=== PATIENT | female | born 2000 | race Two or more races ===

== ENCOUNTER → 2025-05-21 | Outpatient (CLI) | payer MEDICAID, SELFPAY ==
--- NOTE | 2025-05-21 13:00 | XR_ITS ---
Examination: Complete OB ultrasound greater than 14 weeks Date and time of exam: May 21, 2025, 1357 hours INDICATIONS: , unknown size and dates. Findings: Viable intrauterine single fetus with single amniotic sac presentation cephalic. Cardiac motion 132 BPM. Placenta posterior maternal right grade 2. Umbilical cord insertion seen. Amniotic fluid index 14.4 cm. Mild bilateral hydronephrosis Cervix 4.1 cm Ovaries obscured by bowel gas. Composite estimated gestational age based on BPD, head circumference, abdominal circumference, femur length is 30 weeks 6 days, estimated weight 1694 g. Survey of intracranial anatomy, spinal anatomy, abdominal anatomy, four-chamber heart performed with no abnormalities identified. Impression: Viable intrauterine gestation cephalic presentation.
== END | disposition home or self-care (01) ==
LOC: CDIM 13:22
PROVIDERS: PCP Nurse Practitioner Family; Referring Provider Nurse Practitioner Family; Visit Provider Nurse Practitioner Family
DX: Z34.93 Encounter for supervision of normal pregnancy, unspecified, third trimester (principal); Z3A.30 30 weeks gestation of pregnancy
CPT/HCPCS: 76805

== ENCOUNTER 2025-06-04 13:23 | Outpatient (AMB) | payer MEDICAID, SELFPAY ==
[2025-06-04 13:43] VITALS: BP 95/62; PULSE 82; RESP 16; TEMP 36.6; O2SAT 98; BMI 40.8
--- NOTE | 2025-06-04 13:43 | OBCLNT_ITS ---
Vital Signs 06/04/25 13:43 Height 1.52 m Height Method Stated Weight 94.858 kg Weight Measurement Method Standing Scale BMI 40.8 BP 95/62 Blood Pressure Source Automatic Cuff Blood Pressure Location Left Upper Arm Position Sitting Respiration 16 Pulse 82 Pulse Source Monitor Temp 97.8 F Temp Source Oral Pulse Oximetry (%) 98 Oxygen Delivery Method Room Air Allergies/Home Meds Allergies & Medications Allergies No Known Allergies Allergy (Verified 06/04/25 13:50) Medication Reconciliation No Known Home Medications 06/04/25 [History Confirmed 06/04/25] Intake Visit Data Collection New Patient or Established: New Patient (never been to [facility]) Reason for Visit:: OBI Seen by Clinical Staff ONLY (RN/MA): No Job Molder Required: No Do You Feel Safe at Home: Yes Authorities Contacted: N/A PCP or OBGYN visit in last 3 months: Yes Hx Now: Yes Are you currently on any form of Control: No Last menstrual period: 10/19/24 Pain Present Currently: No Pain Scale Used: Valenzuela-Alvarez/Numerical Pain scale:: 0 Smoking Status Smoking Status: Never smoker Questionnaires Covid-19 Vaccine Questionnaire Has patient been vacinated for Covid-19 Have you been vacinated for Covid-19: No PHQ-9 PHQ-2 Over the last 2 weeks, how often have you been bothered by any of the following problems? 1. Little interest or pleasure in doing things: not at all 2. Feeling down, depressed, or hopeless: not at all Total score: 0 PHQ-9 3. Trouble falling or staying asleep, or sleeping too much: Not at all 4. Feeling tired or having little energy: Not at all 5. Poor appetite or overeating: Not at all 6. Feeling bad about yourself - or that you are a failure or have let yourself or your family down: Not at all 7. Trouble concentrating on things, such as reading the newspaper or watching television: Not at all 8. Moving or speaking so slowly that other people could have noticed? - Or the opposite - being so fidgety or restless that you have been moving around a lot more than usual: not at all 9. Thoughts that you would be better off or of hurting yourself in some way: Not at all Total score: 0 If you checked off any problems, how difficult have these problems made it for you to do your work, take care of things at home, or get along with other people?: not difficult at all Source: Developed by Drs. Jensen Barton, Erica Anderson, Rell Lewis and colleagues, with an educational caroline from [employer]. Depression screen completed yes Social History Living Situation History Marital Status: Lives With: Family Housing: TRAILOR HOME Housing Other:: Has a 4-year-old son. Used to work in the [employer] until 6 weeks ago Tobacco History Smoking Status: Never smoker Second Hand Smoke Exposure: No Alcohol History Alcohol Intake: Never Domestic Abuse History Do You Feel Safe at Home: Yes History of Present Illness HPI Narrative The patient is a 24-year-old -0-1-1 who presents with her and 4-year-old son as a new OB appointment to our clinic. She had care started in [place] and then came to the [facility] and had some care at [facility] I also have records from [facility] in the more EDC 07/26/2025 patient is approximately 33 weeks today. According to her notes, she had a classical section at 34 weeks. Today patient states she does not remember how many weeks she was and what the baby's weight was. She has no records. LMP 10/19/2024 of note the patient would like a . 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 Unknown scar. Other Relevant History: Denies chronic medical problems including asthma diabetes or hypertension. OB Initial Visit OB Flowsheet OB Flowsheet Initial Weight: Not Recorded Date -?-?-?-?-?--?-?-?-?-?-?-?- EGA Weight BP Alb Glu CTX Pres Fundal ht FHR Mov Dilation Station Effacement Hx Notes Visit Note 06/04/25 -?-?-?-?-?-?-?-?-?-?-?-?- 32w 6d 94.858 kg 95/62 33 145 Transfer OB. Labs reviewed. Ultrasound reviewed. Patient reports good movement no contractions loss or loss of fluids Menstrual History Menstrual reliability: definite Flow: normal Menstrual regularity: regular Monthly: Yes Age at menarche: 12 On control pills at conception: No OB History : 2 Para: 1 # of Living Children: 1 Delivery History 1st : Child's name: NOT PROVIDED date: 08/26/20 sex: male Delivery type: History of depression before or after : No Infection History & Risk Evaluation History of STDs: none HIV risk evaluation: low risk Hepatitis B risk evaluation: low risk Patient or partner has history of Genital Herpes: No Varicella/chicken pox status: immunized Genetic Screening & History Genetic Screening/Teratology Counseling - Includes patient, baby's father, or anyone in either family with: 1. Patient's age 35 years or older as of estimated date of delivery: No 2. Thalassemia (Tamazight, Mosotho, Mediterranean, or Background); MCV less th an 80: No 3. Neural Tube Defect (Meningomyelocele, Spina Bifida, or Anencephaly): No 4. Congenital Heart Defect: No 5. Down Syndrome: No 6. Salvador-Sachs (Ashkenazi Gnosticist, Cajun, Uzbek Azerbaijani): No 7. Hernandez Disease (Ashkenazi Gnosticist): No 8. Familial Dysautonomia (Ashkenazi Gnosticist): No 9. Sickle Cell Disease or Trait (): No 10. Hemophilia or other blood disorders: No 11. Muscular Dystrophy: No 12. Cystic Fibrosis: No 13. Dorothy's Chorea: No 14. Mental Retardation/Autism: No 15. Other inherited genetic or chromosomal disorder: No 16. Maternal Metabolic Disorder (EG,TYPE 1 Diabetes, PKU): No 17. Patient or baby's father had a child with defects not listed above: No 18. Recurrent loss or a stillbirth: No 19. Medications (including supplements, vitamins, herbs or otc drugs)/illicit/recreational drugs/alcohol since last menstrual period: No 20. Any other: No Infection History 1. Live with someone with TB or exposed to TB: No 2. Rash or viral illness since last menstrual period: No 3. Hepatitis B,C: No Other (see comments) Source: [employer] Exam Narrative Physical exam: Fundal height 34. heart tones noted at 142 bpm. General Limitations: no limitations General Appearance: alert, in no apparent distress, comfortable, cooperative, healthy appearing and well groomed Chest Chest inspection: Present normal inspection and symmetric chest wall rise Resp Respiratory exam: Present normal lung sounds bilaterally Card Cardiovascular exam: Present regular rate, normal rhythm and normal heart sounds Abdominal Abdominal exam: Present soft and normal bowel sounds Extremities Extremities exam: Present normal inspection and full ROM Psych Psychiatric exam: Present normal affect and normal mood Skin Skin exam: Present warm, dry, intact and normal color Office Procedures OBC Clinic LOC & Office Proc's Nursing/Assessment Patient Status: Initial/New Patient OB Clinic Nursing Assessment: Medication Reconciliation, Update PMH in EMR and Vital Signs OB Clinic Coordination of Care: Education Complex Pt/Fam, Consent,records obtained, informed consent, Lab and Imaging orders, Results/Orders obtained and Staff clarify orders Special Needs: Heart tones and Language special needs New Patient Charge New Patient Point Assignment: 1114 New Patient Point Charge: CONTROLLER COAL OR ORE Level 3 (4522-1197) Assessment & Plan Diagnosis / Problem List (1) : Status: Acute Qualifiers: Weeks of gestation: 33 weeks Qualified Code(s): Z3A.33 - 33 weeks gestation of Plan: Labs reviewed. Patient states she had a 1 hour glucose there is some thing in her notes about 93. We might have to get her official results. (2) History of delivery, currently : Status: Acute Plan: Patient was told [facility] does not offer VBACs. There is something in her notes about a possible classical . I am unsure about this as I have no op report. I told her even if she went to [facility] to more of a tertiary care center they would probably not offer a without a documented scar. She has a vertical skin incision I recommended a low-transverse section patient states that she thought this caused more pain which is why they apparently do it vertically in [place]. I told the patient to talk to her. The end of the discussion she decided that she would go ahead and get a repeat low-transverse section we will chai edule this for approximately 39 weeks she will follow-up in 2 weeks.
== END 2025-06-04 14:14 | disposition home or self-care (01) ==
LOC: HODSOBC 13:23
PROVIDERS: PCP Nurse Practitioner Family; Referring Provider Nurse Practitioner Family; Supervising Provider Obstetrics & Gynecology; Visit Provider Obstetrics & Gynecology
DX: O09.293 Supervision of pregnancy with other poor reproductive or obstetric history, third trimester (principal); O34.211 Maternal care for low transverse scar from previous cesarean delivery; Z3A.32 32 weeks gestation of pregnancy
CPT/HCPCS: 99203; G0463

== ENCOUNTER 2025-06-18 14:28 | Outpatient (AMB) | payer MEDICAID, SELFPAY ==
[2025-06-18 14:32] VITALS: BP 96/60; PULSE 70; RESP 17; TEMP 36.1; O2SAT 98; BMI 41.6
--- NOTE | 2025-06-18 14:32 | OBCLNT_ITS ---
Vital Signs 06/18/25 14:32 Height 1.52 m Height Method Stated Weight 96.162 kg Weight Measurement Method Standing Scale BMI 41.6 BP 96/60 Blood Pressure Source Automatic Cuff Blood Pressure Location Right Upper Arm Position Sitting Respiration 17 Pulse 70 Pulse Source Monitor Temp 97.0 F Temp Source Temporal Artery Scan Pulse Oximetry (%) 98 Oxygen Delivery Method Room Air Allergies/Home Meds Allergies & Medications Allergies No Known Allergies Allergy (Verified 06/18/25 14:34) Medication Reconciliation No Known Home Medications 06/04/25 [History Confirmed 06/18/25] Intake Visit Data Collection New Patient or Established: Established Patient (seen at [facility] within 3 years) Reason for Visit:: OBC Seen by Clinical Staff ONLY (RN/MA): No Senior Java Programmer Required: No Do You Feel Safe at Home: Yes Authorities Contacted: N/A PCP or OBGYN visit in last 3 months: Yes Date of Last PCP or OBGYN visit: 06/04/25 Hx Now: Yes Are you currently on any form of Control: No Pain Present Currently: No Pain Scale Used: Valenzuela-Alvarez/Numerical Pain scale:: 0 Smoking Status Smoking Status: Never smoker Questionnaires Covid-19 Vaccine Questionnaire Has patient been vacinated for Covid-19 Have you been vacinated for Covid-19: No PHQ-9 PHQ-2 Over the last 2 weeks, how often have you been bothered by any of the following problems? 1. Little interest or pleasure in doing things: not at all 2. Feeling down, depressed, or hopeless: not at all Total score: 0 PHQ-9 3. Trouble falling or staying asleep, or sleeping too much: Not at all 4. Feeling tired or having little energy: Not at all 5. Poor appetite or overeating: Not at all 6. Feeling bad about yourself - or that you are a failure or have let yourself or your family down: Not at all 7. Trouble concentrating on things, such as reading the newspaper or watching television: Not at all 8. Moving or speaking so slowly that other people could have noticed? - Or the opposite - being so fidgety or restless that you have been moving around a lot more than usual: not at all 9. Thoughts that you would be better off or of hurting yourself in some way: Not at all Total score: 0 If you checked off any problems, how difficult have these problems made it for you to do your work, take care of things at home, or get along with other people?: not difficult at all Source: Developed by Drs. Jensen Barton, Erica Anderson, Rell Lewis and colleagues, with an educational caroline from [employer]. Depression screen completed yes Social History Living Situation History Marital Status: Single Lives With: Family Housing: TRAILOR HOME Housing Other:: Has a 4-year-old son. Used to work in the [employer] until 6 weeks ago Tobacco History Smoking Status: Never smoker Second Hand Smoke Exposure: No Alcohol History Alcohol Intake: Never Domestic Abuse History Do You Feel Safe at Home: Yes Care OB Visit Log OB Flowsheet Initial Weight: Not Recorded Date -?-?-?--?-?-?-?-?-?-?-?-?- EGA Weight BP Alb Glu CTX Pres Fundal ht FHR Mov Dilation Station Effacement Hx Notes Visit Note 06/04/25 -?-?-?-?-?-?-?-?-?-?-?-?- 32w 6d 94.858 kg 95/62 33 145 Transfer OB. Labs reviewed. Ultrasound reviewed. Patient reports good movement no contractions loss or loss of fluids 06/18/25 -?-?-?-?-?-?-?-?-?-?-?-?- 34w 6d 96.162 kg 96/60 absent cephalic 34 141 active Fetus active. No OB complaints. Denies leaking, bleeding, contractions labor precautions discussed. Discussed kick count. And discussed danger signs symptoms and ER precautions. Return in a week with OB for repeat management ANALI Calculator Estimated Delivery Date Method Current WG Current Estimate 07/24/25 Ultrasound #1 34w 6d Other Estimates 07/26/25 LMP (Certain) 34w 4d Notes Visit Date: 06/18/25 Last Updated by: Maggie Merino CNM 06/18: 3 hr gtt wnl Visit Date: 06/04/25 Last Updated by: Caroline Infante (OB Clinic)MD Patient has been off work over the last month or so. She is asking for retrograde note. I told her I cannot do that but I can provide her a note from right now as she does work in the [employer]. We will take her off work on disability at this time. Patient has a prior section and will need a repeat. We will not the patient. She has an unknown scar from [place]. No actual labs are seen but the EMR EMR from a different doctor's office states the labs are as follows: O+/ antibody negative/ rubella immune/ RPR nonreactive /urine culture was negative/ hepatitis B surface antigen negative/ HIV negative/ thyroid normal She states that she had a glucose test but I do not see any results. Will call it and try to get a hold of hardcopy of her labs. She will follow-up in 2 weeks. Office Procedures OBC Clinic LOC & Office Proc's Nursing/Assessment Patient Status: Established Patient OB Clinic Nursing Assessment: Medication Reconciliation, Update PMH in EMR and Vital Signs OB Clinic Coordination of Care: Complex Care and Chronic Disease 1-5, Education Complex Pt/Fam, Consent,records obtained, informed consent and Staff clarify orders Special Needs: Heart tones Established Patient Charge Established Patient Point Assignment: 120 Established Patient Point Charge: EP Level 4 (120-155) Assessment & Plan Diagnosis / Problem List (1) Encounter for supervision of high risk in third trimester, antepartum: Status: Acute Plan Reviewed with patient to repeat . Scheduled with OB for previous C- section management. Discussed precautions. Kick count twice a day. Return in a week OB check Additional Plan Follow Up: 1 Week (obc)
== END 2025-06-18 15:30 | disposition home or self-care (01) ==
PROVIDERS: Supervising Provider Advanced Practice Midwife; Visit Provider Advanced Practice Midwife
DX: O09.293 Supervision of pregnancy with other poor reproductive or obstetric history, third trimester (principal); O34.219 Maternal care for unspecified type scar from previous cesarean delivery; Z3A.34 34 weeks gestation of pregnancy
CPT/HCPCS: 99214; G0463

== ENCOUNTER → 2025-06-26 15:33 | Outpatient (AMB) | payer MEDICAID, SELFPAY ==
[2025-06-26 15:48] VITALS: BP 101/69; PULSE 93; RESP 18; TEMP 36.2; O2SAT 98; BMI 41.8
--- NOTE | 2025-06-26 15:48 | OBCLNT_ITS ---
Vital Signs 06/26/25 15:48 Height 1.52 m Height Method Stated Weight 96.729 kg Weight Measurement Method Standing Scale BMI 41.8 BP 101/69 Blood Pressure Source Automatic Cuff Blood Pressure Location Left Upper Arm Position Sitting Respiration 18 Pulse 93 Pulse Source Monitor Temp 97.1 F Temp Source Oral Pulse Oximetry (%) 98 Oxygen Delivery Method Room Air Allergies/Home Meds Allergies & Medications Allergies No Known Allergies Allergy (Verified 06/26/25 15:50) Medication Reconciliation No Known Home Medications 06/04/25 [History Confirmed 06/26/25] Intake Visit Data Collection New Patient or Established: Established Patient (seen at [facility] within 3 years) Reason for Visit:: CARE Seen by Clinical Staff ONLY (RN/MA): No Plant Physiology Teacher Required: No Do You Feel Safe at Home: Yes Authorities Contacted: N/A PCP or OBGYN visit in last 3 months: Yes Hx Now: Yes Are you currently on any form of Control: No Pain Present Currently: No Pain Scale Used: Valenzuela-Alvarez/Numerical Pain scale:: 0 Smoking Status Smoking Status: Never smoker Questionnaires Covid-19 Vaccine Questionnaire Has patient been vacinated for Covid-19 Have you been vacinated for Covid-19: Yes PHQ-9 PHQ-2 Over the last 2 weeks, how often have you been bothered by any of the following problems? 1. Little interest or pleasure in doing things: not at all 2. Feeling down, depressed, or hopeless: not at all Total score: 0 PHQ-9 3. Trouble falling or staying asleep, or sleeping too much: Not at all 4. Feeling tired or having little energy: Not at all 5. Poor appetite or overeating: Not at all 6. Feeling bad about yourself - or that you are a failure or have let yourself or your family down: Not at all 7. Trouble concentrating on things, such as reading the newspaper or watching television: Not at all 8. Moving or speaking so slowly that other people could have noticed? - Or the opposite - being so fidgety or restless that you have been moving around a lot more than usual: not at all 9. Thoughts that you would be better off or of hurting yourself in some way: Not at all Total score: 0 Source: Developed by Drs. Jensen Barton, Erica Anderson, Rell Lewis and colleagues, with an educational caroline from [employer]. Depression screen completed yes Social History Living Situation History Lives With: Family Housing: TRAILOR HOME Housing Other:: Has a 4-year-old son. Used to work in the [employer] until 6 weeks ago Tobacco History Smoking Status: Never smoker Second Hand Smoke Exposure: No Alcohol History Alcohol Intake: Never Domestic Abuse History Do You Feel Safe at Home: Yes Care OB Visit Log OB Flowsheet Initial Weight: Not Recorded Date -?-?-?-?-?-?-?-?-?-?-?-?- EGA Weight BP Alb Glu CTX Pres Fundal ht FHR Mov Dilation Station Effacement Hx Notes Visit Note 06/04/25 -?-?-?-?-?-?-?-?-?-?-?-?- 32w 6d 94.858 kg 95/62 33 145 Transfer OB. Labs reviewed. Ultrasound reviewed. Patient reports good movement no contractions loss or loss of fluids 06/18/25 -?-?-?-?-?-?-?-?-?-?-?-?- 34w 6d 96.162 kg 96/60 absent cephalic 34 141 active Fetus active. No OB complaints. Denies leaking, bleeding, contractions labor precautions discussed. Discussed kick count. And discussed danger signs symptoms and ER precautions. Return in a week with OB for repeat management 06/26/25 -?-?-?-?-?-?-?-?-?-?-?-?- 36w 0d 96.729 kg 101/69 absent cephalic 37 145 active - She has a history of classical section at 34 weeks in July 2020 in [place]. - Patient was interested in attempting a (vaginal after ) for this . - She was previously informed that the ospital does not allow procedures. - Patient expressed being upset about having to have another alexis an section. - scheduled for July 18 at 1230 hours (patient will be 39 weeks and 1 day gestation) - GBS culture obtained today, results pe nding - Referral placed due to abnormal Pap sm ear - Patient to follow up with Dr. Sepulveda (n ot Dr. Barnes) through August ANALI Calculator Estimated Delivery Date Method Current WG Current Estimate 07/24/25 Ultrasound #1 36w 2d Other Estimates 07/26/25 LMP (Certain) 36w 0d Notes Visit Date: 06/18/25 Last Updated by: Maggie Merino CNM 06/18: 3 hr gtt wnl Visit Date: 06/04/25 Last Updated by: Caroline Infante (OB Clinic)MD Patient has been off work over the last month or so. She is asking for retrograde note. I told her I cannot do that but I can provide her a note from right now as she does work in the [employer]. We will take her off work on disability at this time. Patient has a prior section and will need a repeat. We will not the patient. She has an unknown scar from [place]. No actual labs are seen but the EMR EMR from a different doctor's office states the labs are as follows: O+/ antibody negative/ rubella immune/ RPR nonreactive /urine culture was negative/ hepatitis B surface antigen negative/ HIV negative/ thyroid normal She states that she had a glucose test but I do not see any results. Will call it and try to get a hold of hardcopy of her labs. She will follow-up in 2 weeks. Office Procedures OBC Clinic LOC & Office Proc's Nursing/Assessment Patient Status: Established Patient OB Clinic Nursing Assessment: Medication Reconciliation, Update PMH in EMR and Vital Signs OB Clinic Coordination of Care: Complex Care and Chronic Disease 1-5, Consent ,records obtained, informed consent, Education Simp Pt/Fam, 1 Ins Authorization, Lab and Imaging orders, Results/Orders obtained and Staff clarify orders Special Needs: Heart tones Miscellaneous Interventions: Culture Specimen Collection Established Patient Charge Established Patient Point Assignment: 165 Established Patient Point Charge: EP Level 5 (160-above) Assessment & Plan Diagnosis / Problem List (1) Encounter for supervision of high risk in third trimester, antepartum: Status: Acute (2) History of delivery, currently : Status: Acute Plan Problem List - , 36 weeks gestation - History of classical section - Group B Streptococcus screening pending - Abnormal Pap smear Assessment 24-year-old at 36 weeks and 0 days gestation with history of classical section at 34 weeks in July 2020 in [place]. Patient had previously expressed interest in but was informed that the hospital does not allow after classical section. Patient has abnormal Pap smear requiring follow-up. GBS culture was obtained today with results pending. Repeat section has been scheduled for July 18 at 39 weeks and 1 day gestation. Plan - scheduled for July 18 at 1230 hours (patient will be 39 weeks and 1 day gestation) - GBS culture obtained today, results pending - Referral placed due to abnormal Pap smear - Patient to follow up with Dr. Sepulveda (not Dr. Barnes) through August 11. Progress Reviewed gestational age, growth, and heart rate. Planned frequent visits (every 2 weeks until 36 weeks, then weekly). 2. Instructed patient to monitor movements and report decreases immediately. 3. Testing Counseled on routine third-trimester labs per guidelines. Discussed potential need for ultrasound or monitoring based on risk factors. 4. Preeclampsia Precaution Educated on preeclampsia signs: severe headache, vision changes, right upper quadrant pain, sudden swelling. Advised urgent reporting of symptoms and discussed blood pressure monitoring if high risk. 5. Labor Precautions Reviewed labor signs: regular contractions, pelvic pressure, back pain, bleeding, or fluid leakage. Instructed to seek immediate care for these symptoms. 6. Lifestyle and Delivery Preparation Reinforced vitamins, nutrition, and safe activity. Discussed plan, pain management, and . Advised on labor preparation (e.g., hospital bag) and expectations. 7. Psychosocial Support Assessed emotional well-being and offered resources for mental health or parenting support.
== END ==
LOC: HODSOBC 15:33
PROVIDERS: Supervising Provider Obstetrics & Gynecology; Visit Provider Obstetrics & Gynecology
DX: O09.293 Supervision of pregnancy with other poor reproductive or obstetric history, third trimester (principal); O34.212 Maternal care for vertical scar from previous cesarean delivery; Z3A.36 36 weeks gestation of pregnancy; Z36.85 Encounter for antenatal screening for Streptococcus B
CPT/HCPCS: 99215; G0463

== ENCOUNTER 2025-07-15 10:01 | Outpatient (AMB) | payer MEDICAID, SELFPAY ==
[2025-07-15 10:20] VITALS: BP 106/72; PULSE 93; RESP 18; TEMP 36.4; O2SAT 97; BMI 42.6
--- NOTE | 2025-07-15 10:20 | OBCLNT_ITS ---
Vital Signs 07/15/25 10:20 Height 1.52 m Height Method Stated Weight 98.43 kg Weight Measurement Method Standing Scale BMI 42.6 BP 106/72 Blood Pressure Source Automatic Cuff Blood Pressure Location Left Upper Arm Position Sitting Respiration 18 Pulse 93 Pulse Source Monitor Temp 97.6 F Temp Source Oral Pulse Oximetry (%) 97 Oxygen Delivery Method Room Air Allergies/Home Meds Allergies & Medications Allergies No Known Allergies Allergy (Verified 07/15/25 10:24) Medication Reconciliation No Known Home Medications 06/04/25 [History Confirmed 07/15/25] Intake Visit Data Collection New Patient or Established: Established Patient (seen at [facility] within 3 years) Reason for Visit:: CARE/ GBS RESULTS Seen by Clinical Staff ONLY (RN/MA): No Electric Container Tester Required: Yes Electric Container Tester's name/title: CAROLYN CARROLL/OMI Do You Feel Safe at Home: Yes Authorities Contacted: N/A PCP or OBGYN visit in last 3 months: Yes Hx Now: Yes Are you currently on any form of Control: No Pain Present Currently: No Pain Scale Used: Valenzuela-Alvarez/Numerical Pain scale:: 0 Smoking Status Smoking Status: Never smoker Immunizations Flu Vaccine in the Last 12 Months: Yes Flu Vaccine Exclusion Criteria: Already Received Questionnaires Covid-19 Vaccine Questionnaire Has patient been vacinated for Covid-19 Have you been vacinated for Covid-19: Yes PHQ-9 PHQ-2 Over the last 2 weeks, how often have you been bothered by any of the following problems? 1. Little interest or pleasure in doing things: not at all 2. Feeling down, depressed, or hopeless: not at all Total score: 0 PHQ-9 3. Trouble falling or staying asleep, or sleeping too much: Not at all 4. Feeling tired or having little energy: Not at all 5. Poor appetite or overeating: Not at all 6. Feeling bad about yourself - or that you are a failure or have let yourself or your family down: Not at all 7. Trouble concentrating on things, such as reading the newspaper or watching television: Not at all 8. Moving or speaking so slowly that other people could have noticed? - Or the opposite - being so fidgety or restless that you have been moving around a lot more than usual: not at all 9. Thoughts that you would be better off or of hurting yourself in some way: Not at all Total score: 0 Source: Developed by Drs. Jensen Barton, Erica Anderson, Rell Lewis and colleagues, with an educational caroline from [employer]. Depression screen completed yes Social History Living Situation History Lives With: Family Housing: TRAILOR HOME Housing Other:: Has a 4-year-old son. Used to work in the [employer] until 6 weeks ago Tobacco History Smoking Status: Never smoker Second Hand Smoke Exposure: No Alcohol History Alcohol Intake: Never Domestic Abuse History Do You Feel Safe at Home: Yes Care OB Visit Log OB Flowsheet Initial Weight: Not Recorded Date -?-?-?-?-?-?-?-?-?-?-?-?- EGA Weight BP Alb Glu CTX Pres Fundal ht FHR Mov Dilation Station Effacement Hx Notes Visit Note 06/04/25 -?-?-?-?-?-?-?-?-?-?-?-?- 32w 4d 94.858 kg 95/62 33 145 Transfer OB. Labs reviewed. Ultrasound reviewed. Patient reports good movement no contractions loss or loss of fluids 06/18/25 -?-?-?-?-?-?-?-?-?-?-?-?- 34w 4d 96.162 kg 96/60 absent cephalic 34 141 active Fetus active. No OB complaints. Denies leaking, bleeding, contractions labor precautions discussed. Discussed kick count. And discussed danger signs symptoms and ER precautions. Return in a week with OB for repeat management 06/26/25 -?-?-?-?-?-?-?-?-?-?-?-?- 35w 5d 96.729 kg 101/69 absent cephalic 37 145 active - She has a history of classical section at 34 weeks in July 2020 in [place]. - Patient was interested in attempting a (vaginal after ) for this . - She was previously informed that the ospital does not allow procedures. - Patient expressed being upset about having to have another alexis an section. - scheduled for July 18 at 1230 hours (patient will be 39 weeks and 1 day gestation) - GBS culture obtained today, results pe nding - Referral placed due to abnormal Pap sm ear - Patient to follow up with Dr. Sepulveda (n ot Dr. Barnes) through 07/03/25 -?-?-?-?-?-?-?-?-?-?-?-?- 36w 5d 97.296 kg 110/73 absent cephalic 38 155 active - She reports the baby is very active with occasional mild contractions that are intermittent. - She experiences headaches and stomach aches. - Headaches occur during the day and s he has been taking Tylenol for relief. - She has a history of preeclampsia and current elevated blood pressure. - She denies regular contractions occurr ing every 5 minutes. 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 - Repeat section scheduled for July 18 at 37 weeks gestation - Pre-operative appointment to be schedu led before July 18 - Patient to register at [facility] regist ration desk at main entrance - Monitor for contractions - come to hos pital if contractions occur every 5 minutes - Take Tylenol for headaches; if headach es persist despite Tylenol, come in for laboratory work - Blood pressure monitoring and urine pr otein checks for preeclampsia history - Detailed hospital instructions to be p rovided at next visit 07/15/25 -?-?-?-?-?-?-?-?-?-?-?-?- 38w 3d 98.43 kg 106/72 absent cephalic 39 150 active - She reports the baby is active with no contractions or problems. - She denies any current concerns or com plications. - Patient has a scheduled repeat section planned for . - GBS culture performed today at 35 weeks 4 days gestation - Scheduled repeat section on N - Patient to arrive 2 hours before anna donovan section - NPO (nothing by mouth) for 8 hours kim or to section - Follow-up visits to be weekly until ce sarean section - Next appointment scheduled for one kashif lopez EDD Calculator Estimated Delivery Date Method Current WG Current Estimate 07/26/25 LMP (Certain) 38w 3d Other Estimates 07/24/25 Ultrasound #1 38w 5d Notes Visit Date: 06/18/25 Last Updated by: Maggie Merino CNM 06/18: 3 hr gtt wnl Visit Date: 06/04/25 Last Updated by: Caroline Infante (OB Clinic)MD Patient has been off work over the last month or so. She is asking for retrograde note. I told her I cannot do that but I can provide her a note from right now as she does work in the [employer]. We will take her off work on disability at this time. Patient has a prior section and will need a repeat. We will not the patient. She has an unknown scar from [place]. No actual labs are seen but the EMR EMR from a different doctor's office states the labs are as follows: O+/ antibody negative/ rubella immune/ RPR nonreactive /urine culture was negative/ hepatitis B surface antigen negative/ HIV negative/ thyroid normal She states that she had a glucose test but I do not see any results. Will call it and try to get a hold of hardcopy of her labs. She will follow-up in 2 weeks. Office Procedures OBC Clinic LOC & Office Proc's Nursing/Assessment Patient Status: Established Patient OB Clinic Nursing Assessment: Medication Reconciliation, Update PMH in EMR and Vital Signs OB Clinic Coordination of Care: Complex Care and Chronic Disease 1-5, Consent,records obtained, informed consent, Education Simp Pt/Fam, 1 Ins Authorization, Lab and Imaging orders, Results/Orders obtained and Staff clarify orders Special Needs: Heart tones Established Patient Charge Established Patient Point Assignment: 150 Established Patient Point Charge: EP Level 4 (120-155) Assessment & Plan Diagnosis / Problem List (1) Encounter for supervision of high risk in third trimester, antepartum: Status: Acute (2) History of delivery, currently : Status: Acute Plan Problem List - at 35 weeks and 4 days gestation - History of delivery - Scheduled repeat section Assessment 35-week 4-day 2 para 1 patient presenting for routine visit with scheduled repeat section. heart rate is normal at 150-151 bpm. Patient reports active movement with no contractions or other concerning symptoms. Group B Streptococcus screening was performed as indicated for gestational age. Plan - GBS culture performed today at 35 weeks 4 days gestation - Scheduled repeat section on August 08 - Patient to arrive 2 hours before section - NPO (nothing by mouth) for 8 hours prior to section - Follow-up visits to be weekly until section - Next appointment scheduled for one week 1. Progress Reviewed gestational age (35 weeks 4 days), growth, and heart rate (150-151 bpm, normal). Planned frequent visits (weekly until scheduled section on August 08). 2. Instructed patient to monitor movements and report decreases immediately. 3. Testing Counseled on routine third-trimester labs per guidelines (GBS culture performed today). Discussed potential need for ultrasound or monitoring based on risk factors. 4. Preeclampsia Precaution Educated on preeclampsia signs: severe headache, vision changes, right upper quadrant pain, sudden swelling. Advised urgent reporting of symptoms and discussed blood pressure monitoring if high risk. 5. Labor Precautions Reviewed labor signs: regular contractions, pelvic pressure, back pain, bleeding, or fluid leakage. Instructed to seek immediate care for these symptoms. 6. Lifestyle and Delivery Preparation Reinforced vitamins, nutrition, and safe activity. Discussed plan (scheduled repeat section), pain management, and . Advised on labor preparation (arrive 2 hours before surgery, NPO for 8 hours prior) and expectations. 7. Psychosocial Support Assessed emotional well-being and offered resources for mental health or parenting support.
== END 2025-07-15 10:44 | disposition home or self-care (01) ==
LOC: HODSOBC 10:01
PROVIDERS: PCP Obstetrics & Gynecology; Referring Provider Obstetrics & Gynecology; Supervising Provider Obstetrics & Gynecology; Visit Provider Obstetrics & Gynecology
DX: O09.293 Supervision of pregnancy with other poor reproductive or obstetric history, third trimester (principal); O34.212 Maternal care for vertical scar from previous cesarean delivery; Z3A.38 38 weeks gestation of pregnancy; Z36.85 Encounter for antenatal screening for Streptococcus B
CPT/HCPCS: 99214; G0463

== ENCOUNTER 2025-07-18 10:45 | Inpatient (IN) | payer MEDICAID, SELFPAY ==
[2025-07-18] VITALS (13 sets, daily range): BP systolic 65–125; BP diastolic 50–108; PULSE 72–103; RESP 16–28; TEMP 36.6–37; O2SAT 99–100; BMI 42.2
--- NOTE | 2025-07-18 11:30 | ESHP_ITS ---
Documentation for date of: 07/18/25 OB Labor/Induct. HPI History of Present Illness : 2 Living children: 1 History of sections: Yes Date of last menstrual period: 10/19/24 ANALI: 07/26/25 Gestational Age (weeks): 38 Gestational Age (days): 6 Gestational age based on last menstrual period: 38 History of present illness: Ms. Lakshmi Ricardo is a 24-year-old female at 38 weeks and 6 days gestation, admitted for scheduled repeat delivery due to a previous classical uterine incision performed at 34 weeks in July 2020 in [place]. The patient denies contractions, vaginal bleeding, or leakage of fluid. She reports normal movement though somewhat decreased due to limited intrauterine space. She describes occasional mild contractions, not regular or painful. She has experienced intermittent headaches during the day, partially relieved with Tylenol. She denies visual changes, right upper quadrant pain, or epigastric tenderness. She has a history of preeclampsia in her prior and was noted to have elevated blood pressures during recent visits. She is otherwise in good health and compliant with vitamins. blood type O positive with a negative antibody screen. She is rubella immune, hepatitis B surface antigen negative, HIV non-reactive, and RPR non-reactive. Gonorrhea and chlamydia testing were negative, and her urine culture showed no growth. A one-hour glucose tolerance test was within normal limits. Group B Streptococcus screening was negative. Labs Labs: Positive: Rubella Titre, Negative: RPR, Hepatitis B, HIV, Chlamydia and Gonorrhea and Unknown: Herpes Type 1, Herpes Type 2, Group Beta Strep and Covid-19 Past Medical History Surgical History SURGICAL: Positive Section Meds Home Medications and Allergies Allergies Allergy/AdvReac Type Severity Reaction Status Date / Time No Known Allergies Allergy Verified 07/15/25 10:24 OB Exam Physical Exam Narrative: General: Awake, alert, in no acute distress. HEENT: No edema, sclera anicteric. Cardiac: RRR, no murmurs. Lungs: Clear to auscultation, mild non-productive cough. Abdomen: Gravid, non-tender, fundal height appropriate. No contractions palpated. Extremities: Trace edema, no calf tenderness, reflexes normal. FHR: 146 bpm, reactive. OB Assessment & Plan Assessment and Plan (1) History of delivery, currently : Status: Acute Assessment and plan: Admit to Labor & Delivery for scheduled repeat section on 07/18/2025 at 12:30 PM NPO after midnight. CBC, type & screen, RPR Anesthesia and teams notified. IV fluids: LR at 125 mL/hr. Preoperative antibiotics: Ancef 2 g IV prior to incision. Antacid prophylaxis: Bicitra 30 mL PO preoperatively. Continuous monitoring until transfer to OR. Blood pressure monitoring and preeclampsia labs if elevated or symptomatic. Postoperative care: Monitor vitals, lochia, incision site, urine output. Ambulate POD#1, advance diet as tolerated. Pain control with ERAS protocol (scheduled acetaminophen and NSAID, PRN opioid). Encourage and [id number] contact. Discharge anticipated POD#2?3 if stable. Follow-up: Routine visit at 2 weeks for incision check, then at 6 weeks.
[2025-07-18 11:40] LABS: Basophils # (Auto) 0.0 Thou/mm3 (0.0-0.2); Basophils % (Auto) 0 % (0-2.5); Eosinophils # (Auto) 0.0 Thou/mm3 (0.0-0.5); Eosinophils % (Auto) 0 % (0-10); Hematocrit 41.4 % (36.0-46.0); Hemoglobin 13.5 g/dL (12.0-16.0); Immature Granulocytes Auto 0.05 Thou/mm3 (0.00-0.00); Lymphocytes # (Auto) 2.1 Thou/mm3 (1.0-4.8); Lymphocytes % (Auto) 21 % (10-50); Mean Corpuscular HGB Conc 32.6 g/dl (31.0-37.0); Mean Corpuscular Hemoglobin 26.8 pg (25.0-35.0); Mean Corpuscular Volume 82 fL (80-100); Monocytes # (Auto) 0.6 Thou/mm3 (0.0-0.8); Monocytes % (Auto) 6 % (0-12); Neutrophils # (Auto) 7.2 Thou/mm3 (1.8-7.7); Neutrophils % (Auto) 72 % (37-80); Nucleated Red Blood Cell # 0.00 Thou/mm3 (0.00-0.00); Nucleated Red Blood Cell % 0 /100 WBC (0); Platelet Count 287 Thou/mm3 (140-440); RDW Standard Deviation 46.3 fL (36.4-46.3); Red Blood Count 5.04 Miln/mm3 (4.00-5.20); White Blood Count 10.0 Thou/mm3 (3.6-11.0)
[2025-07-18 12:13] LABS: Syphilis Nonreactive (Nonreactive)
[2025-07-18] MEDS: ceFAZolin/D5W 2 GM IV 2 GM/100 ML BAG IV (12:25)
[2025-07-18] MEDS: METOCLOPRAMIDE INJ 5 MG/ML VIAL 2 ML 10 MG IVP (12:26)
[2025-07-18] MEDS: RINGERS LACTATED 1000 ML 1,000 ML 100 ML IV (12:26)
[2025-07-18] MEDS: FAMOTIDINE INJ 10 MG/ML VIAL 2 ML 20 MG IV (12:26)
--- NOTE | 2025-07-18 13:17 | PD.LDDELS ---
Data (Yeager) Data Hx Section: Yes : 2 Livin Delivery Data (Yeager) Labor Data Induction/Augmentation Agent: None ROM date: 07/18/25 ROM time: 12:59 Amniotic membrane rupture type: Artificial Amniotic fluid description: Clear Delivery Data delivery date: 07/18/25 delivery time: 12:59 Placenta delivery date: 07/18/25 Placenta delivery time: 13:00 Delivery Method Delivery method: Low Transverse Anesthesia Type Anesthesia Type: None Episiotomy Episiotomy description: None Data (Yeager) Data order: 1 's gender: Male 1 minute: 9 5 minutes: 9
--- NOTE | 2025-07-18 13:18 | PD.GYNPROC ---
Operative Note - VOCAL MUSIC INSTRUCTOR Procedure Date of procedure: 07/18/25 Procedure Performed: Repeat low-transverse section with vertical skin incision Indication: 24-year-old G2, P1 with previous classical in [place] Anesthesia type: Spinal Procedure description: Informed consent was obtained and the patient was taken to the operating room. Identity was confirmed by double identifiers and she was placed on the operating table. Spinal anesthesia was administered and patient was now positioned in the supine position. A Moss catheter was placed to continuous drainage. The abdomen was prepped in the usual sterile fashion and sterile drapes were applied. A timeout procedure was completed. A vertical skin incision was made through the patient's old scar and carried through the subcutaneous player manager to the rectus midline fascia. The rectus fascia was incised and the incisions were extended both superiorly and inferiorly taking care to protect the underlying intra-abdominal structures. Some amount of omental additions were noted to the anterior abdominal wall. Once adequate room was created a Ric O ring retractor was placed. The anterior surface of the uterus was palpated and multiple fibroids could be palpated in the fundal portion of the uterus with the fetus also in the cephalic position. The bladder reflection was identified and a low transverse uterine incision was made. The incision was completed bluntly taking care to protect the membranes the membranes were ruptured to reveal clear amniotic fluid. The fetus was noted to be in the vertex position, the head was elevated out of the maternal pelvis and the rest of the shoulders and body were delivered by gentle fundal pressure.. The umbilical cord was doubly clamped divided and the infant was handed over to the waiting team. The placenta was delivered manually. The interior of the uterus was thoroughly cleaned of membranes and debris using a moist laparotomy sponge. The uterus was now exteriorized and the hysterotomy was closed in 2 layers the first layer in a running locked fashion and the second layer in a running imbricated fashion. The repair was noted to be hemostatic. Some amount of surface oozing was noted at the right ankle that was cauterized with the Bovie. A layer of Surgicel was placed on the incision. The uterus was returned to the peritoneal cavity. The Ric retractor was removed. The peritoneum was reapproximated. The fascial incision was closed using 0 Vicryl in a running fashion. The subcutaneous fat was reapproximated using 2-0 plain gut. The skin was closed using skin mk. The skin was thoroughly cleaned and a sterile dressing was applied. Patient was now undraped, she was transferred to the recovery room in a stable and awake condition. Patient tolerated the entire procedure well. No complications were encountered. All instrument, sponge and lap counts were correct x 2. Estimated blood loss (ml): 600 Complications: none Surgical staff Operation Date: 07/18/25 12:45 <No data on this case meets the specified criteria> Diagnosis Discharge Diagnosis (1) Encounter for supervision of high risk in third trimester, antepartum: Status: Acute (2) History of delivery, currently : Status: Acute Problem List Completed Was Problem List Reviewed/Reconciled?: Yes
[2025-07-18] MEDS: METHYLERGONOVINE INJ 0.2 MG/ML VIAL IM (14:04)
[2025-07-18] MEDS: RINGERS LACTATED 1000 ML 1,000 ML 125 ML IV ×2 (14:45→15:30)
[2025-07-18] MEDS: OXYTOCIN in NS 20 units 20 UNIT/1,000 ML BAG 125 UNIT IV (15:36)
[2025-07-18] MEDS: ACETAMINOPHEN IVPB 1,000 MG/100 ML VIAL 250 MG IV (16:22)
--- NOTE | 2025-07-18 18:38 | PC.NURSE ---
around 1814 called pharmacy regarding Guaifenesin, they will bring the medication.
[2025-07-19] VITALS: BP 102/69; PULSE 96; RESP 16; TEMP 36.9; O2SAT 97
[2025-07-19] MEDS: IBUPROFEN TAB 400 MG TABLET 800 MG PO ×2 (00:35→18:18)
[2025-07-19] MEDS: RINGERS LACTATED 1000 ML 1,000 ML 125 ML IV (02:23)
[2025-07-19 04:00] VITALS: BP 100/66; PULSE 74; RESP 18; TEMP 36.7; O2SAT 96
[2025-07-19 06:17] LABS: Basophils # (Auto) 0.1 Thou/mm3 (0.0-0.2); Basophils % (Auto) 1 % (0-2.5); Eosinophils # (Auto) 0.1 Thou/mm3 (0.0-0.5); Eosinophils % (Auto) 1 % (0-10); Hematocrit 32.9 % (36.0-46.0); Hemoglobin 10.8 g/dL (12.0-16.0); Immature Granulocytes Auto 0.05 Thou/mm3 (0.00-0.00); Lymphocytes # (Auto) 2.0 Thou/mm3 (1.0-4.8); Lymphocytes % (Auto) 20 % (10-50); Mean Corpuscular HGB Conc 32.8 g/dl (31.0-37.0); Mean Corpuscular Hemoglobin 27.0 pg (25.0-35.0); Mean Corpuscular Volume 82 fL (80-100); Monocytes # (Auto) 0.8 Thou/mm3 (0.0-0.8); Monocytes % (Auto) 7 % (0-12); Neutrophils # (Auto) 7.2 Thou/mm3 (1.8-7.7); Neutrophils % (Auto) 71 % (37-80); Nucleated Red Blood Cell # 0.00 Thou/mm3 (0.00-0.00); Nucleated Red Blood Cell % 0 /100 WBC (0); Platelet Count 231 Thou/mm3 (140-440); RDW Standard Deviation 46.3 fL (36.4-46.3); Red Blood Count 4.00 Miln/mm3 (4.00-5.20); White Blood Count 10.2 Thou/mm3 (3.6-11.0)
[2025-07-19 07:30] VITALS: BP 91/59; PULSE 71; RESP 18; TEMP 36.9; O2SAT 97
[2025-07-19] MEDS: SIMETHICONE 80 MG CHEW PO ×2 (08:20→14:32)
[2025-07-19] MEDS: DOCUSATE SOD 100 MG CAPSULE PO (08:20)
[2025-07-19] MEDS: KETOROLAC INJ 30 MG/ML VIAL IVP (10:15)
[2025-07-19 11:30] VITALS: BP 106/72; PULSE 85; RESP 18; TEMP 36.7; O2SAT 98
--- NOTE | 2025-07-19 11:31 | ESPR_ITS ---
Subjective Subjective Interval history: Patient doing well overall. Notes pain has been an issue overnight. She is ambulating no lightheadedness/dizziness. Voiding spontaneously since weaver was removed, no issues. Tolerating regular diet without nausea/vomiting. Passing gas. No fevers/chills, no CP/SOB. Exam Vital Signs Temp Pulse Resp BP Pulse Ox O2 Del Method 98.4 F 71 18 91/59 L 97 Room Air 07/19/25 07:30 07/19/25 07:30 07/19/25 07:30 07/19/25 07:30 07/19/25 07:30 07/19/25 07:30 Narrative Exam General: well developed, well nourished, no acute distress, conversant Cardiac: normal heart rate Lungs: breathing without distress Abdomen: soft, post-gravid, non-tender, no rebound or guarding, vertical midline incision dry/clean/intact with mk in place (pressure dressing removed). Incision well reapproximated. No erythema, drainage or induration. Fundus firm at u-2cm. Extremities: no pain with palpation of calves, trace edema of BLE Objective Labs 07/19/25 05:22 Labs: Laboratory Results - last 24 hr 07/18/25 07/19/25 11:15 05:22 WBC 10.0 10.2 RBC 5.04 4.00 Hgb 13.5 10.8 L D Hct 41.4 32.9 L MCV 82 82 MCH 26.8 27.0 MCHC 32.6 32.8 RDW Std Deviation 46.3 46.3 Plt Count 287 231 D Neut % (Auto) 72 71 Lymph % (Auto) 21 20 Mclennan % (Auto) 6 7 Eos % (Auto) 0 1 Baso % (Auto) 0 1 Neut # (Auto) 7.2 7.2 Lymph # (Auto) 2.1 2.0 Mclennan # (Auto) 0.6 0.8 Eos # (Auto) 0.0 0.1 Baso # (Auto) 0.0 0.1 Immature Gran # (Auto) 0.05 H 0.05 H Absolute Nucleated RBC 0.00 0.00 Immature Gran % 1 H 1 H Nucleated RBC % 0 0 Syphilis Serology Nonreactive Blood Type O Positive Antibody Screen NEGATIVE Blood Bank Wristband ID Yes Assessment & Plan Problem List (1) delivery delivered: Status: Acute Assessment and plan: Lakshmi is a 24yo G4 [id number] s/p uncomplicated RLTCS (vertical midline skin incision), doing well on POD 1. Vitals wnl, benign exam. Savanna for closure. Hemodynamically stable with no evidence of infection. Appropriate change in H/H from 13.5 to 10.8. Surgical EBL 600ml. complicated by: History of prior classical BMI 42.2 Plan: -Continue routine /post-op care -Regular diet -motrin 800mg PO Q8hr scheduled with norco 5/325mg PO Q6hr prn pain -Encourage ambulation and use of IS -Anticipate discharge home tomorrow if meeting all milestones (2) Encounter for supervision of high risk in third trimester, antepartum: Status: Acute (3) History of delivery, currently : Status: Acute Time Spent With Patient Time: Total time spent is greater than 50% in coordination of care (as documented) at patient's floor/unit and/or counseling patient:
[2025-07-19] MEDS: HYDROcodone/APAP 5/325 TABLET 1 TAB PO (16:38)
[2025-07-19 19:58] VITALS: BP 113/78; PULSE 92; RESP 18; TEMP 36.6; O2SAT 98
[2025-07-20] MEDS: IBUPROFEN TAB 400 MG TABLET 800 MG PO (03:29)
[2025-07-20 03:36] VITALS: BP 116/77; PULSE 87; RESP 20; TEMP 36.8; O2SAT 97
[2025-07-20] MEDS: ACETAMINOPHEN 325 MG TABLET 650 MG PO (03:53)
[2025-07-20] MEDS: SIMETHICONE 80 MG CHEW PO (03:54)
--- NOTE | 2025-07-20 05:18 | PD.LDDS ---
DS: Providers Provider Date of admission: 07/18/25 10:45 Primary care physician: Physician No Primary/Family Admitting Provider: Armando Sepulveda MD Attending Provider on Admission: Armando Sepulveda MD Consults: 07/18/25 12:58 Referral Routine Comment: Attending Provider on DC: Alicia Mcintyre MD Discharging Provider: Alicia Mcintyre MD DS: Diagnosis Discharge Diagnosis (1) delivery delivered: Status: Acute (2) Encounter for supervision of high risk in third trimester, antepartum: Status: Acute (3) History of delivery, currently : Status: Acute Problem List Completed Was Problem List Reviewed/Reconciled?: Yes Summary/Hosp Course Brief History: Ms. Lakshmi Ricardo is a 24-year-old female at 38 weeks and 6 days gestation, admitted for scheduled repeat delivery due to a previous classical uterine incision performed at 34 weeks in July 2020 in [place]. The patient denies contractions, vaginal bleeding, or leakage of fluid. She reports normal movement though somewhat decreased due to limited intrauterine space. She describes occasional mild contractions, not regular or painful. She has experienced intermittent headaches during the day, partially relieved with Tylenol. She denies visual changes, right upper quadrant pain, or epigastric tenderness. She has a history of preeclampsia in her prior and was noted to have elevated blood pressures during recent visits. She is otherwise in good health and compliant with vitamins. blood type O positive with a negative antibody screen. She is rubella immune, hepatitis B surface antigen negative, HIV non-reactive, and RPR non-reactive. Gonorrhea and chlamydia testing were negative, and her urine culture showed no growth. A one-hour glucose tolerance test was within normal limits. Group B Streptococcus screening was negative. -- Lakshmi is a 24yo G4 [id number] s/p uncomplicated RLTCS (vertical midline skin incision), doing well on POD 2. Vitals wnl, benign exam. Giselle for closure. Hemodynamically stable with no evidence of infection. Appropriate change in H/H from 13.5 to 10.8. Surgical EBL 600ml. She has had an uncomplicated post-operative course, meeting all milestones and feels ready for discharge home. She is ambulating without lightheadedness, tolerating regular diet no n/v, spontaneously voiding without issue. She has no chest pain or shortness of breath. No fevers or chills. Pain well controlled. Has slight cough, no other URI sx. Given inspirometer to help prevent pneumonia. complicated by: History of prior classical BMI 42.2 Peripartum Data Delivery Method: Low Transverse Episiotomy Description: None Procedures: Procedures Operation Date: 07/18/25 12:45 Actual Procedure Side Surgeon p in OB Not Applicable Armando Sepulveda MD Status at Discharge Functional status at discharge: independent ambulation Overall status at discharge: patient is back to baseline Time Spent with Patient Time attestation: Total time spent providing and/or coordinating discharge services: Exam Vital Signs Temp Pulse Resp BP Pulse Ox O2 Del Method 98.2 F 87 20 116/77 97 Room Air 07/20/25 03:36 07/20/25 03:36 07/20/25 03:36 07/20/25 03:36 07/20/25 03:36 07/20/25 03:36 Narrative Exam General: well developed, well nourished, no acute distress, conversant Cardiac: normal heart rate Lungs: breathing without distress Abdomen: soft, post-gravid, non-tender, no rebound or guarding, midline vertical skin incision dry/clean/intact with giselle in place. Incision well reapproximated. No erythema, drainage or induration. Fundus firm at u-3cm. Extremities: no pain with palpation of calves, trace edema of BLE Discharge Plan Plan Patient Disposition: HOME (Self Care) Patient condition on transfer: Stable Prescriptions/Referrals Prescriptions/Med Rec: New hydrocodone-acetaminophen 5-325 mg tablet 1 tab PO Q6H MDD 4 PRN (Reason: pain) 5 Days Qty: 20 0RF docusate sodium [Stool Softener] 100 mg capsule 100 mg PO QDAY 30 Days Qty: 30 0RF ibuprofen 600 mg tablet 600 mg PO Q6H MDD 4 PRN (Reason: fever or pain) 10 Days Qty: 40 0RF Continued benzonatate 100 mg capsule 100 mg PO Q6H PRN (Reason: cough) 5 Days Qty: 20 0RF cetirizine 10 mg tablet 10 mg PO QDAY 7 Days Qty: 7 0RF Referrals: Armando Sepulveda MD [Physician, [facility] [place] [place]] No Primary/Family,Physician [Primary Care Provider] Patient/Caregiver Discharge Instructions Meds to Beds: Yes Discharge Activity: activity as tolerated Other Discharge Activity Instructions:: vaginal rest and no heavy lifting more than 10 pounds for 6 [address] while taking narcotic. keep incision clean and dry, do not submerge. Other Discharge Diet Instructions: regular Education Materials: C Section Dc Print Language: Croatian Activity Restrictions/Additional Instructions: follow up with Dr. Sepulveda in 1 week for giselle removal, call clinic to schedule appointment Stand Alone Forms: Shira Award Info., Patient Portal Info Letter Discharge Order Discharge Orders: Discharge (Routine); Ordered 07/20/25 Ordered By: Alicia Mcintyre Planned Discharge Date 07/20/25
--- NOTE | 2025-07-20 05:47 | PC.NURSE ---
0547 Called RT morrow to bring a incentive spirometer to the pt and demonstrate how to use it.
[2025-07-20 07:30] VITALS: BP 103/71; PULSE 89; RESP 18; TEMP 36.9; O2SAT 99
[2025-07-20] MEDS: DOCUSATE SOD 100 MG CAPSULE PO (09:06)
== END 2025-07-20 11:20 | disposition home or self-care (01) | DRG 540 ==
LOC: S4SX 11:58 → S4NX 12:40
PROVIDERS: Admitting Provider Obstetrics & Gynecology; Visit Provider Obstetrics & Gynecology
PROC: 10D00Z1 Extraction of Products of Conception, Low, Open Approach (ICD-10-PCS; CPT 59514; principal; 2025-07-18 12:30)
DX: O34.211 Maternal care for low transverse scar from previous cesarean delivery (principal); O34.13 Maternal care for benign tumor of corpus uteri, third trimester; D25.9 Leiomyoma of uterus, unspecified; Z3A.38 38 weeks gestation of pregnancy; Z37.0 Single live birth
CPT/HCPCS: 36415; 59409; 85025; 86780; 86850; 86900; 86901; 94762; J0131; J0689; J1885; J2175; J2210; J2274; J2590; J2765; J3010; J3490; J7120; A9270; J2270

== ENCOUNTER 2025-07-29 13:57 | Emergency (ER) | payer MEDICAID, SELFPAY ==
[2025-07-29 14:22] VITALS: BP 131/84; PULSE 80; RESP 18; TEMP 36.9; O2SAT 98; BMI 34.7
--- NOTE | 2025-07-29 14:26 | EDNOTE_ITS ---
ED Abdominal Pain RME/HPI General Chief Complaint: OB/Uterine Contractions Stated complaint: C.SECTION 07/18; YELLOW DRAINAGE AROUND JESUS Time seen by provider: 07/29/25 14:26 Arrival date/time: 07/29/25 13:57 RME / HPI RME / HPI narrative: See [facility] for Dr. Benitez's HPI documentation. Related Data Previous Rx's ?Medication ?Instructions ?Recorded docusate sodium 100 mg capsule 100 mg PO QDAY 30 days #30 caps 07/18/25 (Stool Softener) cephalexin 500 mg capsule 500 mg PO QID 10 days #40 ca ps 07/29/25 hydrocodone 5 mg-acetaminophen 325 2 tab PO Q8H PRN pa in #20 tabs 07/29/25 mg tablet Allergies Allergy/AdvReac Type Severity Reaction Status Date / Time No Known Allergies Allergy Verified 07/29/25 14:01 Review of Systems Review of Systems Systems Reviewed: All systems reviewed, normal except as documented Past Medical History Past Medical History REPRODUCTIVE: Positive Previous Pregnancies Family History FAMILY HISTORY: Negative Family Psychiatric Problems, Family Respiratory Disorders, Family Cardiac Disorders, Family Gastrointestinal Problems, Family Cancer, Family Surgery or Family Anesthesia Reaction Surgical History SURGICAL: Positive Section Social History SMOKING STATUS: Never smoker SECOND HAND EXPOSURE: No ED Exam Narrative Physical exam: See [facility] for Dr. Benitez's physical exam documentation. Course Quality Measures none Vital Signs Vital signs: Vital Signs Temperature 98.5 F 07/29/25 14:22 Pulse Rate 80 07/29/25 14:22 Respiratory Rate 18 07/29/25 14:22 Blood Pressure 131/84 H 07/29/25 14:22 Pulse Oximetry (%) 98 07/29/25 14:22 Oxygen Delivery Method Room Air 07/29/25 14:22 Pulse ox is 98% on room air which is adequate. Abdominal Pain [facility] Narrative [facility] Narrative:: This section includes all my notes and documentations, including HPI, PE, and ED course. Ezra Benitez MD HPI: 24-year-old female here to be evaluated with possible surgical infection. Had 11 days ago. Since yesterday, she reports yellow drainage from her stapled incision site. No fever or chills. No abdominal pain. No nausea or vomiting. No other complaints. ROS: All negative except as documented in HPI. Physical Exam: General: Alert and oriented. No acute distress when remaining still. Eyes: Conjunctivae and lids clear. ENT: No nasal congestion. Neck: Supple. Heart: RRR. Lungs: No respiratory distress. Good air movement. No rhonchi, wheezing, rales. Abdomen: Soft and nontender. Normal bowel sounds. No distension. No rebound or guarding. Back: No CVA tenderness. Skin: Warm and dry. Lower abdominal incision with spreading ([address]) erythema/edema/calor/tenderness. Neuro: Alert and oriented X 3. No diagnostic testing was ordered. At this point, diagnoses include: Superficial incisional surgical site infection Prescribed Cephalexin and recommended outpatient followup. Based on my best medical judgment, made decision no further evaluation or treatment indicated at this time. Patient understands and agrees to the discharge instructions customized and printed, see below. Discharge Instructions from Dr. Benitez printed for you: 1. Take cephalexin for your surgical incision infection. 2. [place] for severe pain. 3. See your doctor on 08/04/2025 for recheck. 4. Seek immediate medical care with worsening, fever, or with any concerns. Instrucciones de melissa del Dr. Benitez impresas para usted: 1. Gower cefalexina para la infecci?n de la incisi?n quir?rgica. 2. [place] para el dolor intenso. 3. Consulte a resendiz m?dico el 04/08/2025 para earl revisi?n. 4. Busque atenci?n m?dica inmediata si resendiz estado empeora, presenta fiebre o cualquier otra inquietud. Ezra Benitez MD Patient data External records reviewed:: [facility] previous records Clinical information provided by:: patient Social determinants that could affect healthcare access:: none Patient has the following chronic illnesses:: hx on 07/18/2025 How is presenting disease/condition affected by chronic disease/condition?: exacerbated by Evaluation data The following diagnostics were reviewed and interpreted by me:: other (specify) (No diagnostics ordered ) Lab and/or radiology exams considered but not ordered:: None Interpretation Summary: No diagnostic testing was ordered. Medications / Prescriptions Medications or Prescriptions considered but not ordered:: None Medication administrations:: No medications given in the ED. Consultations Consultation(s) initiated? (list below): No Diagnosis Differential diagnosis abdominal pain: other (cellulitis, surgical incision infection) Most likely diagnosis given after review of the tests above:: At this point, diagnoses include: Superficial incisional surgical site infection Admission Indicated Admission indicated?: not indicated Explain why admission is indicated or not indicated:: With no condition needing emergent intervention, there was no indication for admission. Admission Request Was there a request for admission?: No Disposition Plan Disposition Plan: Discharge Discharge Attestation Discharge Attestation: The patient and all family members were given an opportunity to ask questions and understood the discharge instructions. Discharge instructions specifically effects, indications for sooner follow up or return to the emergency department, and the expected course of current diagnosis. Patient condition: Stable Discharge Plan Plan Patient Disposition: HOME (Self Care) Prescriptions/Referrals Prescriptions/Med Rec: New hydrocodone-acetaminophen 5-325 mg tablet 2 tab PO Q8H MDD 6 PRN (Reason: pain) Qty: 20 0RF cephalexin 500 mg capsule 500 mg PO QID 10 Days Qty: 40 0RF No Action docusate sodium [Stool Softener] 100 mg capsule 100 mg PO QDAY 30 Days Qty: 30 0RF Problem List Clinical Impression: Superficial incisional surgical site infection Patient/Caregiver Discharge Instructions Discharge Activity: activity as tolerated Education Materials: ED Post Op Wound Check, Infection Additional Instructions: Discharge Instructions from Dr. Benitez printed for you: 1. Take cephalexin for your surgical incision infection. 2. [place] for severe pain. 3. See your doctor on 08/04/2025 for recheck. 4. Seek immediate medical care with worsening, fever, or with any concerns. Instrucciones de melissa del Dr. Benitez impresas para usted: 1. [place]ower cefalexina para la infecci?n de la incisi?n quir?rgica. 2. [place] para el dolor intenso. 3. Consulte a resendiz m?dico el 04/08/2025 para earl revisi?n. 4. Busque atenci?n m?dica inmediata si resendiz estado empeora, presenta fiebre o cualquier otra inquietud. Print Language: Portuguese Stand Alone Forms: Shira Award Info., Patient Portal Info Letter
== END 2025-07-29 15:08 | disposition home or self-care (01) ==
LOC: SERX 15:36
PROVIDERS: Emergency Provider Emergency Medicine
DX: O86.01 Infection of obstetric surgical wound, superficial incisional site (principal)
CPT/HCPCS: 99281

== ENCOUNTER 2025-08-04 08:47 | Outpatient (AMB) | payer MEDICAID, SELFPAY ==
--- NOTE | 2025-08-04 08:51 | AMBOBPPN_ITS ---
Vital Signs 08/04/25 08:59 Height 1.63 m Height Method Stated Weight 93.157 kg Weight Measurement Method Standing Scale BMI 35.0 BP 109/73 Blood Pressure Source Automatic Cuff Blood Pressure Location Left Upper Arm Position Sitting Respiration 14 Pulse 67 Pulse Source Monitor Temp 97.6 F Temp Source Oral Pulse Oximetry (%) 98 Oxygen Delivery Method Room Air Allergies/Home Meds Allergies & Medications Allergies No Known Allergies Allergy (Verified 08/04/25 09:00) Medication Reconciliation docusate sodium 100 mg capsule (Stool Softener) 100 mg PO QDAY 30 days #30 caps 07/18/25 [Rx Confirmed 08/04/25] hydrocodone 5 mg-acetaminophen 325 mg tablet 2 tab PO Q8H PRN pain #20 tabs 07/29/25 [Rx Confirmed 08/04/25] amoxicillin 875 mg-potassium clavulanate 125 mg tablet 1 tab PO BID 7 days #14 tabs 08/04/25 [Rx] Intake Visit Data Collection New Patient or Established: Established Patient (seen at [facility] within 3 years) Reason for Visit:: / C SECTION FOLLOW UP Seen by Clinical Staff ONLY (RN/MA): No Size Marker Required: No Do You Feel Safe at Home: Yes Authorities Contacted: N/A PCP or OBGYN visit in last 3 months: Yes Hx Now: No Are you currently on any form of Control: No Pain Present Currently: No Pain Scale Used: Valenzuela-Alvarez/Numerical Pain scale:: 0 Smoking Status Smoking Status: Never smoker Immunizations Flu Vaccine in the Last 12 Months: No Flu Vaccine Exclusion Criteria: Refused by Patient 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 Used to work in the [employer] until 6 weeks ago Tobacco History Smoking Status: Never smoker Second Hand Smoke Exposure: No Alcohol History Alcohol Intake: Never Domestic Abuse History Do You Feel Safe at Home: Yes EPDS - PP Depression Screening Crane Pospartum Depression Screen I have been able to laugh and see the funny side of things: (0) As much as I always could I have looked forward with enjoyment to things: (0) As much as I ever did I have blamed myself unnecessarily when things went wrong: (0) No, never I have been anxious or worried for no good reason: (0) No, not at all I have felt scared or panicky for no very good reason: (0) No, not at all Things have been getting on top of me: (0) No, I have been coping as well as ever I have been so unhappy that I have had difficulty sleeping: (0) No, not at all I have felt sad or miserable: (0) No, not at all I have been so unhappy that I have been crying: (0) No, never The thought of harming myself has occurred to me: (0) Never EPDS completed yes Care OB Visit Log OB Flowsheet Initial Weight: Not Recorded Date -?-?-?-?-?-?-?-?-?-?-?-?- EGA Weight BP Alb Glu CTX Pres Fundal ht FHR Mov Dilation Station Effacement Hx Notes Visit Note 06/04/25 -?-?-?-?-?-?-?-?-?-?-?-?- 32w 4d 94.858 kg 95/62 33 145 Transfer OB. Labs reviewed. Ultrasound reviewed. Patient reports good movement no contractions loss or loss of fluids 06/18/25 -?-?-?-?-?-?-?-?-?-?-?-?- 34w 4d 96.162 kg 96/60 absent cephalic 34 141 active Fetus active. No OB complaints. Denies leaking, bleeding, contractions labor precautions discussed. Discussed kick count. And discussed danger signs symptoms and ER precautions. Return in a week with OB for repeat management 06/26/25 -?-?-?-?-?-?-?-?-?-?-?-?- 35w 5d 96.729 kg 101/69 absent cephalic 37 145 active - She has a history of classical section at 34 weeks in July 2020 in [place]. - Patient was interested in attempting a (vaginal after ) for this . - She was previously informed that the h ospital does not allow procedures. - Patient expressed being upset about having to have another alexis an section. - scheduled for July 18 at 1230 hours (patient will be 39 weeks and 1 day gestation) - GBS culture obtained today, results pe nding - Referral placed due to abnormal Pap sm ear - Patient to follow up with Dr. Sepulveda (n ot Dr. Barnes) through 07/03/25 -?-?-?-?-?-?-?-?-?-?-?-?- 36w 5d 97.296 kg 110/73 absent cephalic 38 155 active - She reports the baby is very active with occasional mild contractions that are intermittent. - She experiences headaches and stomach aches. - Headaches occur during the day and s he has been taking Tylenol for relief. - She has a history of preeclampsia and current elevated blood pressure. - She denies regular contractions occurr ing every 5 minutes. 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 - Repeat section scheduled for July 18 at 37 weeks gestation - Pre-operative appointment to be schedu led before July 18 - Patient to register at hospital regist ration desk at main entrance - Monitor for contractions - come to hos pital if contractions occur every 5 minutes - Take Tylenol for headaches; if headach es persist despite Tylenol, come in for laboratory work - Blood pressure monitoring and urine pr otein checks for preeclampsia history - Detailed hospital instructions to be p rovided at next visit 07/15/25 -?-?-?-?-?-?-?-?-?-?-?-?- 38w 3d 98.43 kg 106/72 absent cephalic 39 150 active - She reports the baby is active with no contractions or problems. - She denies any current concerns or com plications. - Patient has a scheduled repeat section planned for . - GBS culture performed today at 35 weeks 4 days gestation - Scheduled repeat section on - Patient to arrive 2 hours before anna donovan section - NPO (nothing by mouth) for 8 hours kim or to section - Follow-up visits to be weekly until ce sarean section - Next appointment scheduled for one kashif lopez ANALI Calculator Estimated Delivery Date Method Current WG Current Estimate 07/26/25 LMP (Certain) 41w 2d Other Estimates 07/24/25 Ultrasound #1 41w 4d Notes Visit Date: 06/18/25 Last Updated by: Maggie Merino CNM 06/18: 3 hr gtt wnl Visit Date: 06/04/25 Last Updated by: Caroline Infante (OB Clinic)MD Patient has been off work over the last month or so. She is asking for retrograde note. I told her I cannot do that but I can provide her a note from right now as she does work in the [employer]. We will take her off work on disability at this time. Patient has a prior section and will need a repeat. We will not the patient. She has an unknown scar from [place]. No actual labs are seen but the EMR EMR from a different doctor's office states the labs are as follows: O+/ antibody negative/ rubella immune/ RPR nonreactive /urine culture was negative/ hepatitis B surface antigen negative/ HIV negative/ thyroid normal She states that she had a glucose test but I do not see any results. Will call it and try to get a hold of hardcopy of her labs. She will follow-up in 2 weeks. HPI Interval History: Lakshmi Lainez is a patient who underwent section on July 18 and presents for staple removal and wound evaluation. She has been experiencing issues with her surgical site, including some drainage from the middle portion of her incision, though this appears to be drying up. She has been prescribed antibiotics from the emergency room, which she is taking every 8 hours. The patient reports that her baby is doing well and she is . She has been cleaning the incision site daily during showers as instructed. There is mention of previous visits for shivers and a positive screening, though the specific nature of these is not detailed in the current visit discussion. She has a recent section delivery on July 18, 2025. The patient is currently with living and is . She underwent section on July 18, 2025, currently with postoperative wound care and staple removal. The patient has been taking Keflex every 8 hours and antibiotics from the ER, which provides treatment for her surgical site concerns. She expresses the importance of proper wound care as she continues to recover from her recent delivery while caring for her . ROS: Positive for shivers, negative except as stated above, limited to and pertinent complaints. Exam Narrative Physical exam: - Abdominal: incision site examined. Middle portion of incision shows evidence of previous drainage that is now drying up. No current signs of infection noted. Giselle removed from incision site. Incision appears dry. - Skin: incision site with some odor present but no visible signs of infection. General General Appearance: alert, in no apparent distress and healthy appearing Head Head exam: atraumatic Neck Neck exam: Present normal inspection and trachea midline Chest Chest inspection: Present normal inspection and symmetric chest wall rise External exam: Present normal external exam; Absent tenderness Neuro Neurological exam: Present oriented X3 Psych Psychiatric exam: Present normal affect and normal mood Office Procedures OBC Clinic LOC & Office Proc's Nursing/Assessment Patient Status: Established Patient OB Clinic Nursing Assessment: Medication Reconciliation, Update PMH in EMR and Vital Signs OB Clinic Coordination of Care: Complex Care and Chronic Disease 1-5, Consent,records obtained, informed consent, Education Simp Pt/Fam, 1 Ins Authorization, Lab and Imaging orders, Results/Orders obtained and Staff clarify orders Miscellaneous Interventions: Skin/Strips adhesive and Staple/Suture Removal Established Patient Charge Established Patient Point Assignment: 145 Established Patient Point Charge: EP Level 4 (120-155) Assessment & Plan Diagnosis / Problem List (1) wound infection: Status: Acute Plan Section Wound Care: - Status post section performed on July 18 with staple removal completed. - Wound examination reveals drainage in middle portion that appears to be drying up with odor present but no clear signs of active infection. - Overall wound healing appropriately. - Currently on antibiotics prescribed from emergency room. Plan: - Continue daily wound cleaning during showers. - Recommend elastic compression garment for better support than current binder. - Temporary bandage applied for immediate post-procedure protection, to be removed at home as wound is dry. - Review current antibiotic regimen; if patient is on Keflex, consider switching to Augmentin for broader spectrum coverage. - Follow-up appointment in 7 days for wound check. - If needed, wound revision can be considered at 8 weeks post- section.
[2025-08-04 08:59] VITALS: BP 109/73; PULSE 67; RESP 14; TEMP 36.4; O2SAT 98; BMI 35.0
== END 2025-08-04 09:20 | disposition home or self-care (01) ==
LOC: HODSOBC 08:47
PROVIDERS: Supervising Provider Obstetrics & Gynecology; Visit Provider Obstetrics & Gynecology
DX: Z39.2 Encounter for routine postpartum follow-up (principal); Z39.1 Encounter for care and examination of lactating mother; O86.00 Infection of obstetric surgical wound, unspecified
CPT/HCPCS: 99214; G0463

== ENCOUNTER 2025-08-12 09:21 | Outpatient (AMB) | payer MEDICAID, SELFPAY ==
[2025-08-12 09:58] VITALS: BP 104/71; PULSE 70; RESP 14; TEMP 36.4; O2SAT 97; BMI 35.2
--- NOTE | 2025-08-12 09:58 | GYNCLNT_ITS ---
Vital Signs 08/12/25 09:58 Height 1.63 m Height Method Stated Weight 93.553 kg Weight Measurement Method Standing Scale BMI 35.2 BP 104/71 Blood Pressure Source Automatic Cuff Blood Pressure Location Left Upper Arm Position Sitting Respiration 14 Pulse 70 Pulse Source Monitor Temp 97.6 F Temp Source Oral Pulse Oximetry (%) 97 Oxygen Delivery Method Room Air Allergies/Home Meds Allergies & Medications Allergies No Known Allergies Allergy (Verified 08/27/25 10:30) Medication Reconciliation hydrocodone 5 mg-acetaminophen 325 mg tablet 2 tab PO Q8H PRN pain #20 tabs 07/29/25 [Rx Confirmed 08/27/25] Intake Visit Data Collection New Patient or Established: Established Patient (seen at [facility] within 3 years) Reason for Visit:: WOUND CHECK Seen by Clinical Staff ONLY (RN/MA): No Cash Applications Coordinator Required: Yes Cash Applications Coordinator's name/title: CAROLYN CARROLL Do You Feel Safe at Home: Yes Authorities Contacted: N/A PCP or OBGYN visit in last 3 months: Yes Hx Now: No Are you currently on any form of Control: No Pain Present Currently: No Pain Scale Used: Valenzuela-Alvarez/Numerical Pain scale:: 0 Smoking Status Smoking Status: Never smoker Immunizations Flu Vaccine in the Last 12 Months: Yes Flu Vaccine Exclusion Criteria: Already Received Director And Professor history Director And Professor History Menstrual regularity: regular Flow: normal Monthly: Yes How many days does period last: 7 Age at menarche: 15 Currently sexually active: No If not currently sexually active, have you ever been sexually active: Yes 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 1. Little interest or pleasure in doing things: not at all 2. Feeling down, depressed, or hopeless: not at all Total score: 0 PHQ-9 3. Trouble falling or staying asleep, or sleeping too much: Not at all 4. Feeling tired or having little energy: Not at all 5. Poor appetite or overeating: Not at all 6. Feeling bad about yourself - or that you are a failure or have let yourself or your family down: Not at all 7. Trouble concentrating on things, such as reading the newspaper or watching television: Not at all 8. Moving or speaking so slowly that other people could have noticed? - Or the opposite - being so fidgety or restless that you have been moving around a lot more than usual: not at all 9. Thoughts that you would be better off or of hurting yourself in some way: Not at all Total score: 0 Source: Developed by Drs. Jensen Barton, Erica Anderson, Rell Lewis and colleagues, with an educational caroline from [employer] Depression screen completed yes Social History Living Situation History Lives With: Family Housing: MOBILE HOME Housing Other:: Has a 4-year-old son. Used to work in the [employer] until 6 weeks ago Tobacco History Smoking Status: Never smoker Second Hand Smoke Exposure: No Alcohol History Alcohol Intake: Never Domestic Abuse History Do You Feel Safe at Home: Yes History of Present Illness HPI Narrative Incision check of vertical scar Lakshmi Lainez presents for incision check of her vertical scar. The patient reports that the incision is looking better since her last visit. She notes that pink areas are present at the incision site, and experiences some bleeding when the area rubs or pulls. The patient is using a belt, presumably for support, which has developed an odor. Surgical History: - Vertical section (recent, currently in postoperative healing phase) Obstetric History: - Recent delivery via vertical section Exam Narrative Physical exam: - Skin: Vertical incision appears much better with pink areas noted that are expected to fill in and close. Incision may bleed if rubbed or pulled, which is normal healing process. Office Procedures [facility] Clinic LOC & Office Proc's Nursing/Assessment Patient Status: Established Patient OB Clinic Nursing Assessment: Medication Reconciliation, Update PMH in EMR and Vital Signs OB Clinic Coordination of Care: Complex Care and Chronic Disease 1-5, Consent,records obtained, informed consent, Education Simp Pt/Fam and Staff clarify orders Miscellaneous Interventions: Dressing placement or removal Established Patient Charge Established Patient Point Assignment: 105 Established Patient Point Charge: EP Level 3 (80-115) Assessment & Plan Diagnosis / Problem List (1) wound infection: Status: Acute Plan Post- section incision healing Assessment: Vertical incision is healing well with improvement noted since last visit. [place] areas present at incision site represent normal healing tissue that will continue to fill in and close. Minor bleeding may occur with rubbing or pulling, which is expected and not concerning during the healing process. Plan: - Continue current wound care - Incision should completely close within one week - Follow-up appointment scheduled in 2 weeks - Patient instructed to wash abdominal belt in washing machine without using dryer to prevent infection risk
== END 2025-08-12 10:34 | disposition home or self-care (01) ==
LOC: HODSOBC 09:21
PROVIDERS: Supervising Provider Obstetrics & Gynecology; Visit Provider Obstetrics & Gynecology
DX: O86.00 Infection of obstetric surgical wound, unspecified (principal)
CPT/HCPCS: 99213; G0463

== ENCOUNTER 2025-08-27 10:01 | Outpatient (AMB) | payer MEDICAID, SELFPAY ==
[2025-08-27 10:29] VITALS: BP 104/70; PULSE 68; RESP 14; TEMP 35.9; O2SAT 97; BMI 35.5
--- NOTE | 2025-08-27 10:29 | AMBOBPPN_ITS ---
Vital Signs 08/27/25 10:29 Height 1.63 m Height Method Stated Weight 94.347 kg Weight Measurement Method Standing Scale BMI 35.5 BP 104/70 Blood Pressure Source Automatic Cuff Blood Pressure Location Left Upper Arm Position Sitting Respiration 14 Pulse 68 Pulse Source Monitor Temp 96.7 F L Temp Source Oral Pulse Oximetry (%) 97 Oxygen Delivery Method Room Air Allergies/Home Meds Allergies & Medications Allergies No Known Allergies Allergy (Verified 08/27/25 10:30) Medication Reconciliation hydrocodone 5 mg-acetaminophen 325 mg tablet 2 tab PO Q8H PRN pain #20 tabs 07/29/25 [Rx Confirmed 08/27/25] Intake Visit Data Collection New Patient or Established: Established Patient (seen at 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 Used to work in the [employer] until 6 weeks ago Tobacco History Smoking Status: Never smoker Second Hand Smoke Exposure: No Alcohol History Alcohol Intake: Never Domestic Abuse History Do You Feel Safe at Home: Yes EPDS - PP Depression Screening [place] Pospartum Depression Screen I have been able to laugh and see the funny side of things: (0) As much as I always could I have looked forward with enjoyment to things: (0) As much as I ever did I have blamed myself unnecessarily when things went wrong: (0) No, never I have been anxious or worried for no good reason: (0) No, not at all I have felt scared or panicky for no very good reason: (0) No, not at all Things have been getting on top of me: (0) No, I have been coping as well as ever I have been so unhappy that I have had difficulty sleeping: (0) No, not at all I have felt sad or miserable: (0) No, not at all I have been so unhappy that I have been crying: (0) No, never The thought of harming myself has occurred to me: (0) Never EPDS completed yes Care OB Visit Log OB Flowsheet Initial Weight: Not Recorded Date -?-?-?-?-?-?-?-?-?-?-?-?- EGA Weight BP Alb Glu CTX Pres Fundal ht FHR Mov Dilation Station Effacement Hx Notes Visit Note 06/04/25 -?-?-?-?-?-?-?-?-?-?-?-?- 32w 4d 94.858 kg 95/62 33 145 Transfer OB. Labs reviewed. Ultrasound reviewed. Patient reports good movement no contractions loss or loss of fluids 06/18/25 -?-?-?-?-?-?-?-?-?-?-?-?- 34w 4d 96.162 kg 96/60 absent cephalic 34 141 active Fetus active. No OB complaints. Denies leaking, bleeding, contractions labor precautions discussed. Discussed kick count. And discussed danger signs symptoms and ER precautions. Return in a week with OB for repeat management 06/26/25 -?-?-?-?-?-?-?-?-?-?-?-?- 35w 5d 96.729 kg 101/69 absent cephalic 37 145 active - She has a history of classical section at 34 weeks in July 2020 in [place]. - Patient was interested in attempting a (vaginal after ) for this . - She was previously informed that the ospital does not allow procedures. - Patient expressed being upset about having to have another alexis an section. - scheduled for July 18 at 1230 hours (patient will be 39 weeks and 1 day gestation) - GBS culture obtained today, results pe nding - Referral placed due to abnormal Pap sm ear - Patient to follow up with Dr. Sepulveda (n ot Dr. Barnes) through 07/03/25 -?-?-?-?-?-?-?-?-?-?-?-?- 36w 5d 97.296 kg 110/73 absent cephalic 38 155 active - She reports the baby is very active with occasional mild contractions that are intermittent. - She experiences headaches and stomach aches. - Headaches occur during the day and s he has been taking Tylenol for relief. - She has a history of preeclampsia and current elevated blood pressure. - She denies regular contractions occurr ing every 5 minutes. 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 - Repeat section scheduled for July 18 at 37 weeks gestation - Pre-operative appointment to be schedu led before July 18 - Patient to register at hospital regist ration desk at main entrance - Monitor for contractions - come to hos pital if contractions occur every 5 minutes - Take Tylenol for headaches; if headach es persist despite Tylenol, come in for laboratory work - Blood pressure monitoring and urine pr otein checks for preeclampsia history - Detailed hospital instructions to be p rovided at next visit 07/15/25 -?-?-?-?-?-?-?-?-?-?-?-?- 38w 3d 98.43 kg 106/72 absent cephalic 39 150 active - She reports the baby is active with no contractions or problems. - She denies any current concerns or com plications. - Patient has a scheduled repeat section planned for Novem . - GBS culture performed today at 35 weeks 4 days gestation - Scheduled repeat section on N - Patient to arrive 2 hours before anna donovan section - NPO (nothing by mouth) for 8 hours kim or to section - Follow-up visits to be weekly until ce sarean section - Next appointment scheduled for one kashif lopez EDD Calculator Estimated Delivery Date Method Current WG Current Estimate 07/26/25 LMP (Certain) 44w 4d Other Estimates 07/24/25 Ultrasound #1 44w 6d Notes Visit Date: 06/18/25 Last Updated by: Maggie Merino CNM 10/8: 3 hr gtt wnl Visit Date: 06/04/25 Last Updated by: Caroline Infante (OB Clinic)MD Patient has been off work over the last month or so. She is asking for retrograde note. I told her I cannot do that but I can provide her a note from right now as she does work in the [employer]. We will take her off work on disability at this time. Patient has a prior section and will need a repeat. We will not the patient. She has an unknown scar from [place]. No actual labs are seen but the EMR EMR from a different doctor's office states the labs are as follows: O+/ antibody negative/ rubella immune/ RPR nonreactive /urine culture was negative/ hepatitis B surface antigen negative/ HIV negative/ thyroid normal She states that she had a glucose test but I do not see any results. Will call it and try to get a hold of hardcopy of her labs. She will follow-up in 2 weeks. HPI Interval History: Lakshmi Lainez presents for follow-up approximately 8 weeks after section. She reports that her surgical site is healing well with minimal drainage, describing it as just draining a little. The patient denies any signs of infection at the incision site. She is seeking guidance regarding activity restrictions and when she can resume normal household activities such as driving, sweeping, and mopping. She has a history of recent delivery via section 8 weeks ago. The patient notes that her incision is currently healing well with minimal drainage at the surgical site. 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 Exam Narrative Physical exam: - Skin: Postoperative incision site examined. No signs of infection noted. Mi nimal drainage present. Healing tissue appears appropriate for postoperative period. Office Procedures OBC Clinic LOC & Office Proc's Nursing/Assessment Patient Status: Established Patient OB Clinic Nursing Assessment: Medication Reconciliation, Update PMH in EMR and Vital Signs OB Clinic Coordination of Care: Complex Care and Chronic Disease 1-5, Consent,records obtained, informed consent, Education Simp Pt/Fam, 1 Ins Authorization, Lab and Imaging orders, Results/Orders obtained and Staff clarify orders Established Patient Charge Established Patient Point Assignment: 120 Established Patient Point Charge: EP Level 4 (120-155) Assessment & Plan Diagnosis / Problem List (1) wound infection: Status: Acute Plan Status Post Section: - 8 weeks following section. - Surgical site examination reveals no signs of infection with good healing. - Minimal drainage present which is consistent with normal tissue remodeling process. - Expected to achieve appearance similar to surrounding skin by 90 days post- surgery. Plan: - Continue wound care with cleaning and aloe vera application to promote scar healing. - Continue use of abdominal support belt until completion of 2 months post . - Consider corset-type support garment without velcro for additional abdominal support. - Activity restrictions: avoid sweeping and mopping for additional 2 weeks. - Lifting restrictions: limit to baby weight and car seat weight, avoid pushing or pulling furniture. - No driving restrictions. - No routine follow-up needed unless issues arise. - Return if any concerns develop.
== END 2025-08-27 11:00 | disposition home or self-care (01) ==
LOC: HODSOBC 10:01
PROVIDERS: Supervising Provider Obstetrics & Gynecology; Visit Provider Obstetrics & Gynecology
DX: O86.00 Infection of obstetric surgical wound, unspecified (principal)
CPT/HCPCS: 99214; G0463